=== PATIENT | female | born 1940 | race Caucasian/White ===

== ENCOUNTER 2020-03-27 13:07 | Outpatient (CLI) | payer MEDICARE ==
[2020-03-27] MEDS ORDERED: Magnevist 469MG/ML 20 ML VIAL ONE (13:44)
--- NOTE | 2020-03-27 14:39 | MRI ---
MRI OF THE BRAIN WITH AND WITHOUT IV CONTRAST: 03/27/20 HISTORY: 79-year-old female with cognitive impairment, mild, so stated. COMPARISON: None. FINDINGS: No restricted diffusion is seen. There are foci of T2 prolongation in the periventricular white matte r consistent with mild chronic small vessel ischemic disease. There is cortical atrophy. The ventricu lar size is appropriate and the basilar cisterns patent. No evidence of infarct, hemorrhage, mass, midline shift or abnormal postcontrast enhancement, extra-a xial fluid collections are seen. The visualized paranasal sinuses and mastoid air cells are well aera danny. IMPRESSION: 1. Cortical atrophy. 2. Mild chronic small vessel ischemic disease. 3. No evidence of acute intracranial process or mass. POS: OFF
== END 2020-03-27 13:08 | disposition home or self-care (01) ==
LOC: BICMRI 13:07
PROVIDERS: ATTEND Psychiatry & Neurology Neurology
DX: G31.84 Mild cognitive impairment of uncertain or unknown etiology (principal); G31.9 Degenerative disease of nervous system, unspecified; I67.82 Cerebral ischemia
CPT/HCPCS: 70553; 82565; A9579

== ENCOUNTER 2022-09-15 11:45 | Outpatient (CLI) | payer MEDICARE | END 2022-09-15 11:46 | disposition home or self-care (01) | LOC: PET 11:45 | PROVIDERS: ATTEND Psychiatry & Neurology Neurology | DX: G30.9 Alzheimer's disease, unspecified (principal) | CPT/HCPCS: 78803; A9552 ==

== ENCOUNTER 2022-10-08 12:38 | Outpatient (CLI) | payer MEDICARE | END 2022-10-08 12:39 | disposition home or self-care (01) | LOC: BICMRI 12:38 | PROVIDERS: ATTEND Psychiatry & Neurology Neurology | DX: G31.84 Mild cognitive impairment of uncertain or unknown etiology (principal) | CPT/HCPCS: 70551 ==